=== PATIENT | female | born 1965 | race Caucasian/White ===

== ENCOUNTER → 2021-01-04 | Outpatient (CLI) | payer OTHER ==
[~2021-01-04] MED LIST: ALPRAZOLAM1 MG PO; AMLODIPINE BESY10 MG PO; CETIRIZINE HCL10 MG PO; CITALOPRAM HBR40 MG PO; CYCLOBENZAPRINE10 MG PO; DULOXETINE HCL30 MG PO; DULOXETINE HCL60 MG PO; ECOTRIN81 MG PO; EPINEPHRIN0.3 MG/0.3 SQ; HYDROCODON-ACE1 EAC2 PO; HYDROXYZINE PAM25 MG PO; K-TAB ER20 MEQ PO; LEVOTHYROXINE125 MCG PO; LIDOCAINE PAIN1 EACH TP; MECLIZINE HCL25 MG PO; METFORMIN HCL500 M2 PO; METOPROLOL TART25 MG PO; OMEPRAZOLE40 MG PO; PRAVASTATIN SOD40 MG PO; QUETIAPINE FUMA25 MG PO; SINGULAIR10 MG PO
== END ==
LOC: KOH-I 09:49
DX: S83.241A Other tear of medial meniscus, current injury, right knee, initial encounter (principal)
CPT/HCPCS: 73721

== ENCOUNTER → 2021-02-08 | Outpatient (CLI) | payer OTHER ==
[2021-02-08 13:09] LABS: HEMOGLOBIN 12.3 gm/dl (12.3-15.3); RED BLOOD COUNT 4.15 M/UL (4.00-5.10); WHITE BLOOD COUNT 11.1 K/UL (4.5-11.0)
[2021-02-08 13:31] LABS: BUN/CREATININE RATIO 7 (0-10)
== END ==
LOC: OPSV2 12:00
PROVIDERS: Orthopaedic Surgery
DX: Z01.818 Encounter for other preprocedural examination (principal); S83.241A Other tear of medial meniscus, current injury, right knee, initial encounter; X58.XXXA Exposure to other specified factors, initial encounter; R00.0 Tachycardia, unspecified; F17.200 Nicotine dependence, unspecified, uncomplicated; Z87.01 Personal history of pneumonia (recurrent); R94.31 Abnormal electrocardiogram [ECG] [EKG]
CPT/HCPCS: 71046; 80048; 85025; 93005

== ENCOUNTER → 2021-02-16 | Day surgery (SDC) | payer OTHER ==
[~2021-02-16] VITALS: Ht 157.5 cm; Wt 71.7 kg
== END | disposition home or self-care (01) ==
LOC: OR 08:00
DX: S83.241A Other tear of medial meniscus, current injury, right knee, initial encounter (principal); S83.251A Bucket-handle tear of lateral meniscus, current injury, right knee, initial encounter; M22.41 Chondromalacia patellae, right knee; M17.11 Unilateral primary osteoarthritis, right knee; M23.51 Chronic instability of knee, right knee; I10 Essential (primary) hypertension; E78.5 Hyperlipidemia, unspecified; E11.9 Type 2 diabetes mellitus without complications; K21.9 Gastro-esophageal reflux disease without esophagitis; F41.9 Anxiety disorder, unspecified; F17.210 Nicotine dependence, cigarettes, uncomplicated; Z88.2 Allergy status to sulfonamides; Z88.1 Allergy status to other antibiotic agents; Z88.8 Allergy status to other drugs, medicaments and biological substances; Z79.84 Long term (current) use of oral hypoglycemic drugs; Z79.899 Other long term (current) drug therapy; X58.XXXA Exposure to other specified factors, initial encounter
CPT/HCPCS: J0171; J0690; J1100; J1170; J1200; J2001; J2250; J2405; J2704; J2710; J3010; J7120

== ENCOUNTER 2021-06-08 22:57 | Emergency (ER) | payer OTHER ==
[2021-06-09 00:45] LABS: HEMOGLOBIN 13.3 gm/dl (12.3-15.3); RED BLOOD COUNT 4.54 M/UL (4.00-5.10); WHITE BLOOD COUNT 16.2 K/UL (4.5-11.0)
[2021-06-09 02:03] LABS: BUN/CREATININE RATIO 7 (0-10)
[2021-06-09] MEDS ORDERED: IMITREX50 MG PO (05:05)
[2021-06-09] MEDS ORDERED: ONDANSETRON ODT4 MG SL (05:05)
[2021-06-09] MEDS ORDERED: PRILOSEC OTC20 MG PO (05:05)
== END 2021-06-09 05:40 | disposition home or self-care (01) ==
LOC: ER1 22:57
PROVIDERS: Physician Assistant
DX: K76.0 Fatty (change of) liver, not elsewhere classified (principal); R07.89 Other chest pain; R51.9 Headache, unspecified; E11.9 Type 2 diabetes mellitus without complications; I10 Essential (primary) hypertension; F17.200 Nicotine dependence, unspecified, uncomplicated; Z88.5 Allergy status to narcotic agent; Z88.2 Allergy status to sulfonamides; Z88.1 Allergy status to other antibiotic agents
CPT/HCPCS: 70450; 71045; 80053; 81001; 82550; 82553; 83605; 83690; 83874; 84484; 85025; 87040; 87086; 93005; 96374; 96375; 99284; J1200; J1885; J2765; J7030; Q9967

== ENCOUNTER → 2021-07-17 | Outpatient (CLI) | payer OTHER ==
[~2021-07-17] MED LIST changes: +IMITREX50 MG PO; +ONDANSETRON ODT4 MG SL; +PRILOSEC OTC20 MG PO
== END ==
LOC: KOH-I 15:35
DX: M50.30 Other cervical disc degeneration, unspecified cervical region (principal); M51.36 Other intervertebral disc degeneration, lumbar region; M48.02 Spinal stenosis, cervical region; M47.817 Spondylosis without myelopathy or radiculopathy, lumbosacral region; M48.07 Spinal stenosis, lumbosacral region
CPT/HCPCS: 72040; 72100

== ENCOUNTER → 2021-08-21 | Outpatient (CLI) | payer OTHER ==
[2021-08-21 13:13] LABS: HEMOGLOBIN 12.5 gm/dl (12.3-15.3); RED BLOOD COUNT 4.3 M/UL (4.00-5.10); WHITE BLOOD COUNT 13.4 K/UL (4.5-11.0)
== END ==
LOC: LAB 12:54
PROVIDERS: Nurse Practitioner Family
DX: D72.829 Elevated white blood cell count, unspecified (principal)
CPT/HCPCS: 36415; 85025

== ENCOUNTER → 2021-10-24 | Outpatient (CLI) | payer OTHER | LOC: KOH-I 15:06 | DX: F17.210 Nicotine dependence, cigarettes, uncomplicated (principal) | CPT/HCPCS: 71271 ==

== ENCOUNTER → 2021-11-08 | Day surgery (SDC) | payer OTHER ==
[~2021-11-08] MED LIST changes: +BACLOFEN10 MG PO; +DIAZEPAM10 MG PO; +MAGNESIUM500 MG PO; +MULTI-VITAMIN1 EACH PO; +OZEMPIC INJ; +VITAMIN D21250 MCG PO; +ZETIA10 MG PO
== END | disposition home or self-care (01) ==
LOC: OR 06:23
DX: Z12.11 Encounter for screening for malignant neoplasm of colon (principal); D12.0 Benign neoplasm of cecum; D12.5 Benign neoplasm of sigmoid colon; D12.3 Benign neoplasm of transverse colon; I10 Essential (primary) hypertension; E03.9 Hypothyroidism, unspecified; E11.9 Type 2 diabetes mellitus without complications; K21.9 Gastro-esophageal reflux disease without esophagitis; Z88.1 Allergy status to other antibiotic agents; Z88.2 Allergy status to sulfonamides; Z88.8 Allergy status to other drugs, medicaments and biological substances; Z79.82 Long term (current) use of aspirin; Z87.891 Personal history of nicotine dependence
CPT/HCPCS: 82962; J2250; J2704; J7120

== ENCOUNTER → 2022-02-15 | Outpatient (CLI) | payer OTHER | LOC: KOH-I 15:55 | DX: M51.36 Other intervertebral disc degeneration, lumbar region (principal); M48.061 Spinal stenosis, lumbar region without neurogenic claudication | CPT/HCPCS: 72148 ==

== ENCOUNTER → 2022-03-16 | Outpatient (CLI) | payer OTHER | LOC: HEART 5 10:10 | DX: J44.9 Chronic obstructive pulmonary disease, unspecified (principal); R05.9 Cough, unspecified; R06.2 Wheezing; R94.2 Abnormal results of pulmonary function studies | CPT/HCPCS: 71046; 94060; 94729 ==